=== PATIENT | female | born 1945 | race Caucasian/White ===

== ENCOUNTER → 2018-07-10 | Outpatient (CLI) | payer MEDICARE ==
[~2018-07-10] MED LIST: APIX5TAB PO; CETI-101 PO; FOLI-74 PO; FURO20TA4 PO; LOSA100T58 PO; METO75TA PO; TRIA10.8 NS; VITAMINB PO; [UNRECOGNIZED DRUG - OTHER] PO
== END | disposition home or self-care (01) ==
LOC: RAH 15:13
PROVIDERS: ATTEND Family Medicine
DX: R22.42 Localized swelling, mass and lump, left lower limb (principal)
CPT/HCPCS: 93971

== ENCOUNTER → 2018-07-20 | Outpatient (CLI) | payer MEDICARE | END | disposition home or self-care (01) | LOC: RAH 16:55 | PROVIDERS: ATTEND Internal Medicine Critical Care Medicine | DX: R22.41 Localized swelling, mass and lump, right lower limb (principal); Z91.81 History of falling | CPT/HCPCS: 73590 ==

== ENCOUNTER 2020-03-06 16:22 | Inpatient (IN) | payer MEDICARE ==
[~2020-03-06] VITALS: Ht 167.6 cm; Wt 56.7 kg
[~2020-03-06 16:22] MED LIST changes: -CETI-101 PO; +CETI-89 PO
[2020-03-06 16:49] LABS: BASOPHILS % (AUTO) 0.6 % (0.0-5.0); EOSINOPHILS % (AUTO) 4.9 % (0.0-8.0); HEMATOCRIT 37.3 % (36-48); LYMPHOCYTES % (AUTO) 18.3 % (21.0-51.0); MEAN CORPUSCULAR HEMOGLOBIN 31.9 pg (27.0-33.0); MEAN CORPUSCULAR VOLUME 93.7 fL (79-99); NEUTROPHILS % (AUTO) 62.8 % (40.0-77.0); PLATELET COUNT (AUTO) 297 K/uL (130-400); RED BLOOD CELL COUNT(AUTO) 3.98 MIL/uL (4.00-5.50); RED CELL DISTRIBUTION WIDTH 12.9 % (11.0-15.5); WHITE BLOOD COUNT (AUTO) 8.3 K/uL (4.8-10.8)
[2020-03-06 17:01] LABS: POTASSIUM 3.8 mmol/L (3.5-5.1)
[2020-03-06 17:02] LABS: INR 1.04 (0.85-1.15); PARTIAL THROMBOPLASTIN TIME 28.4 SEC (26.3-35.5); PROTHROMBIN TIME 11.2 SEC (9.6-11.6)
[2020-03-06 17:05] LABS: ALBUMIN 4.2 g/dL (3.5-5.0); BILIRUBIN,TOTAL 0.8 mg/dL (0.2-1.0)
[2020-03-06] MEDS ORDERED: ZOSYN 3.375GM+NS 50ML 50 ML IV ONE (17:11)
[2020-03-06] MEDS ORDERED: VANCOMYCIN 1GM+NS 250ML 250 ML IV ONE (17:22)
[2020-03-06] MEDS ORDERED: NITROGLYCERIN 0.4 MG SL TAB SL PRN (20:45)
[2020-03-06] MEDS ORDERED: ONDANSETRON HCL 4 MG/2 ML VIAL IV PRN (20:45)
[2020-03-06] MEDS ORDERED: VANCOMYCIN PROTOCOL PER PHARMACY IV PRN (20:45)
[2020-03-06] MEDS ORDERED: HYDROCODONE/ACETAMINOPHEN 5/325 MG TAB PO PRN ×2 (20:45)
[2020-03-06] MEDS ORDERED: DIPHENHYDRAMINE HCL 25 MG CAPSULE PO PRN (20:45)
[2020-03-06] MEDS ORDERED: ACETAMINOPHEN 325 MG TAB PO PRN ×2 (20:45)
[2020-03-06] MEDS ORDERED: SODIUM CHLORIDE 0.9% 1000ML 1,000 ML IV SCH (21:00)
[2020-03-06] MEDS ORDERED: FAMOTIDINE/PF 20 MG/2 ML VIAL IV ONE (21:21)
[2020-03-06] MEDS ORDERED: SODIUM CHLORIDE 0.9% 1000ML 2,000 ML IV ONE (21:25)
[2020-03-06] MEDS ORDERED: METOPROLOL TARTRATE 50 MG TAB ONE (22:22)
[2020-03-06] MEDS ORDERED: LOSARTAN 50 MG TABLET ONE (22:32)
[2020-03-07] MEDS ORDERED: ZOSYN 3.375GM+NS 50ML 50 ML IV SCH (02:00)
[2020-03-07] MEDS ORDERED: ZOSYN 3.375GM+NS 50ML 50 ML IV ONE ×2 (03:35→07:41)
[2020-03-07 04:32] LABS: APPEARANCE,URINE Clear (CLEAR); BILIRUBIN,URINE Negative (NEGATIVE); COLOR,URINE Yellow (YELLOW); GLUCOSE, URINE (UA) Negative (NEGATIVE); KETONES,URINE Trace mg/dL (NEGATIVE); LEUKOCYTE ESTERASE ,URINE Negative (NEGATIVE); NITRATE,URINE Negative (NEGATIVE); OCCULT BLOOD,URINE Moderate (NEGATIVE); PH,URINE 5.5 (5.0-8.0); PROTEIN,URINE Trace mg/dL (NEGATIVE); UROBILINOGEN,URINE 0.2 mg/dL (0.2-1.0)
[2020-03-07 04:38] LABS: MEAN CORPUSCULAR HEMOGLOBIN 32.6 pg (27.0-33.0); MEAN CORPUSCULAR HGB CONC 35.1 g/dL (32.0-36.0); MEAN CORPUSCULAR VOLUME 92.8 fL (79-99); PLATELET COUNT (AUTO) 273 K/uL (130-400); RED BLOOD CELL COUNT(AUTO) 3.77 MIL/uL (4.00-5.50); RED CELL DISTRIBUTION WIDTH 12.8 % (11.0-15.5); WHITE BLOOD COUNT (AUTO) 6.6 K/uL (4.8-10.8)
[2020-03-07 04:45] LABS: BACTERIA,URINE Few /HPF (None Seen); WBC,URINE 0-1 /HPF (0-1)
[2020-03-07 05:06] LABS: EOSINOPHILS % (MANUAL) 10 % (1-6); LYMPHOCYTES % (MANUAL) 18 % (22-44); MAN.DIFF COMMENT-IMPRESSION MANUAL DIFFERENTIAL; MONOCYTES % (MANUAL) 11 % (2-9); SEGMENTED NEUTROPHILS % 61 % (40-70)
[2020-03-07 05:09] LABS: ALBUMIN 3.8 g/dL (3.5-5.0); CREATININE 0.8 mg/dL (0.5-1.5); MAGNESIUM 2.1 mg/dL (1.80-2.40); POTASSIUM 3.3 mmol/L (3.5-5.1); THYROID STIMULATING HORMONE 4.56 uIU/mL (0.36-3.74); TOTAL PROTEIN, SERUM 7.3 g/dL (6.0-8.3)
[2020-03-07] MEDS ORDERED: APIXABAN 2.5 MG TABLET PO ONE (07:40)
[2020-03-07] MEDS ORDERED: FAMOTIDINE 20MG TAB 20 MG TAB ONE (07:41)
[2020-03-07] MEDS ORDERED: METOPROLOL TARTRATE 50 MG TAB ONE (07:41)
[2020-03-07] MEDS ORDERED: LIDOCAINE HCL-MPF 1% 2ML VIAL IV PRN (08:30)
[2020-03-07] MEDS ORDERED: POTASSIUM CHLORIDE 20MEQ/100ML 100 ML IV PRN (08:30)
[2020-03-07] MEDS: FAMOTIDINE 20MG TAB 20 MG TAB PO SCH (09:00)
[2020-03-07] MEDS: CEFAZOLIN SODIUM 1 GM VIAL IVP SCH ×2 (10:15→20:51)
[2020-03-07] MEDS ORDERED: CEFAZOLIN SODIUM 1 GM VIAL ONE (10:23)
[2020-03-07] MEDS ORDERED: SODIUM CHLORIDE 0.9% 100 ML IV ONE (10:24)
--- NOTE | 2020-03-07 14:54 | NUR ---
CM NOTE/IA UNABLE TO MEET PATIENT IN ROOM. IA DONE BY SPIKE GILES. PER PATIENT, LIVES WITH FRIEND, IS INDEPENDENT WITH ADLS, HAS USE OF CANE, NO PROVIDER OR HOME HEALTH SERVICES AND FEELS SAFE TO RETURN HOME ONCE DISCHARGED FROM HOSPITAL. Addendum: 03/07/20 at 1456 by GURMEET VALERO RN CM Amended: Links added.
[2020-03-07] MEDS ORDERED: DIPHENHYDRAMINE HCL 25 MG CAPSULE ONE (15:48)
[2020-03-07] MEDS: SODIUM CHLORIDE 0.9% 1000ML 1,000 ML IV SCH ×2 (16:45→20:52)
[2020-03-07] MEDS: LOSARTAN 100 MG TABLET PO SCH ×3 (17:00→22:09)
[2020-03-07 20:00] VITALS: BP 159/81
[2020-03-07] MEDS: METOPROLOL TARTRATE 50 MG TAB PO SCH ×2 (20:51→20:57)
[2020-03-07] MEDS: APIXABAN 5 MG TABLET PO SCH ×2 (20:52→20:57)
[2020-03-07] MEDS: VANCOMYCIN 1GM+NS 250ML 250 ML IV SCH (21:06)
[2020-03-07] MEDS: POTASSIUM CHLORIDE 20 MEQ ERTAB PO PRN (23:23)
[2020-03-08] VITALS (8 sets, daily range): BP systolic 134–171; BP diastolic 64–104
[2020-03-08] MEDS: POTASSIUM CHLORIDE 20 MEQ ERTAB PO PRN (00:31)
[2020-03-08] MEDS: SODIUM CHLORIDE 0.9% 1000ML 1,000 ML IV SCH ×3 (02:45→21:52)
[2020-03-08] MEDS: CEFAZOLIN SODIUM 1 GM VIAL IVP SCH ×3 (03:41→19:28)
[2020-03-08 05:16] LABS: BASOPHILS % (AUTO) 0.7 % (0.0-5.0); EOSINOPHILS % (AUTO) 8.4 % (0.0-8.0); HEMATOCRIT 32.5 % (36-48); LYMPHOCYTES % (AUTO) 18.5 % (21.0-51.0); MEAN CORPUSCULAR HEMOGLOBIN 31.4 pg (27.0-33.0); MEAN CORPUSCULAR HGB CONC 33.8 g/dL (32.0-36.0); MEAN CORPUSCULAR VOLUME 92.9 fL (79-99); MONOCYTES % (AUTO) 13.4 % (3.0-13.0); NEUTROPHILS % (AUTO) 58.8 % (40.0-77.0); PLATELET COUNT (AUTO) 259 K/uL (130-400); RED CELL DISTRIBUTION WIDTH 12.8 % (11.0-15.5); WHITE BLOOD COUNT (AUTO) 5.7 K/uL (4.8-10.8)
[2020-03-08 05:30] LABS: ALBUMIN 3.4 g/dL (3.5-5.0); BILIRUBIN,TOTAL 0.6 mg/dL (0.2-1.0); CREATININE 0.7 mg/dL (0.5-1.5); POTASSIUM 3.4 mmol/L (3.5-5.1); TOTAL PROTEIN, SERUM 6.6 g/dL (6.0-8.3)
[2020-03-08] MEDS: FAMOTIDINE 20MG TAB 20 MG TAB PO SCH (08:44)
[2020-03-08] MEDS: METOPROLOL TARTRATE 50 MG TAB PO SCH ×2 (08:45→19:29)
[2020-03-08] MEDS: APIXABAN 5 MG TABLET PO SCH ×2 (08:45→19:29)
[2020-03-08] MEDS ORDERED: PHARMACY COMMUNICATION MISC SCH (09:00)
--- NOTE | 2020-03-08 10:00 | NUR ---
CALL TO FRIEND ON FACE SHEET FORREST SANDOVAL, ASKED IF PATIENT HAS FAMILY FOR DECISION MAKING, REVEAL HAD LIVED WITH PATIENT > 3 YEARS, AND IS PARTNER, NOT FRIEND, STATES THAT PATIENT HAS A DAUGHTER OUT OF STATE THAT HE WOULD HAVE "GET HOLD OF' FOR ANY DIG DECISION BUT HER DOES NOT HAVE THAT NUMBER HANDY. DANIEL ASKED IF WE COULD CHANGE STATUS ON FACE SHEET TO PARTNER, RATHER THAN FRIEND, FOR CLARIFICATION OF RELATIONSHIP, MR SANDOVAL AGREED BEST DESCRIPTION Addendum: 03/08/20 at 1741 by KEVIN STEVENSON RN CM Amended: Links added.
[2020-03-08] MEDS: MINERAL OIL/PETROLATUM,WHITE 454 GM CREAM.GM. TP SCH ×2 (13:30→19:30)
[2020-03-08] MEDS: LOSARTAN 100 MG TABLET PO SCH (17:12)
[2020-03-08] MEDS: VANCOMYCIN 1GM+NS 250ML 250 ML IV SCH (17:12)
[2020-03-09] VITALS (7 sets, daily range): BP systolic 145–170; BP diastolic 85–99
[2020-03-09] MEDS: CEFAZOLIN SODIUM 1 GM VIAL IVP SCH ×3 (03:16→19:25)
[2020-03-09 05:32] LABS: HEMATOCRIT 30.3 % (36-48); MEAN CORPUSCULAR HEMOGLOBIN 32.3 pg (27.0-33.0); MEAN CORPUSCULAR HGB CONC 35.3 g/dL (32.0-36.0); MEAN CORPUSCULAR VOLUME 91.5 fL (79-99); RED BLOOD CELL COUNT(AUTO) 3.31 MIL/uL (4.00-5.50); RED CELL DISTRIBUTION WIDTH 12.9 % (11.0-15.5); WHITE BLOOD COUNT (AUTO) 5.3 K/uL (4.8-10.8)
[2020-03-09 05:57] LABS: ALANINE AMINOTRANSFERASE 17 U/L (12-78); ALBUMIN 3.1 g/dL (3.5-5.0); ASPARTATE AMINOTRANSFERASE 25 U/L (10-37); BILIRUBIN,TOTAL 0.6 mg/dL (0.2-1.0); CARBON DIOXIDE 21 mmol/L (21-32); CHLORIDE 104 mmol/L (101-111); CREATININE 0.6 mg/dL (0.5-1.5); GLOMERULAR FILTR. RATE CALC 104 mL/min (>60); GLUCOSE,RANDOM 87 mg/dL (70-105); SODIUM SERUM 135 mmol/L (136-145); TOTAL PROTEIN, SERUM 6.2 g/dL (6.0-8.3); UREA NITROGEN, BLOOD 2 mg/dL (7-18)
[2020-03-09 06:05] LABS: POTASSIUM 2.9 mmol/L (3.5-5.1)
[2020-03-09] MEDS: POTASSIUM CHLORIDE 20 MEQ ERTAB PO PRN (06:10)
[2020-03-09] MEDS: APIXABAN 5 MG TABLET PO SCH ×2 (08:35→19:25)
[2020-03-09] MEDS: METOPROLOL TARTRATE 50 MG TAB PO SCH ×2 (08:35→19:26)
[2020-03-09] MEDS: FAMOTIDINE 20MG TAB 20 MG TAB PO SCH (08:35)
[2020-03-09] MEDS: SODIUM CHLORIDE 0.9% 1000ML 1,000 ML IV SCH (08:36)
[2020-03-09] MEDS: MINERAL OIL/PETROLATUM,WHITE 454 GM CREAM.GM. TP SCH ×3 (08:36→19:26)
--- NOTE | 2020-03-09 10:30 | NUR ---
MADIHA NOTE----Request by DANIEL López to offer MPOA to pt. SW visited pt's room, pt awake, alert and cooperative; informed of reason for SW's visit. Pt. stated that she already has a MPOA at home and did not wish to complete another. Pt. advised to provide copies to medical team, primary physician, etc in the event needed; pt. voiced an understanding. Pt. verbalized no needs or concerns.
[2020-03-09] MEDS ORDERED: MAGNESIUM 2GM PREMIX 50ML 50 ML IV PRN (11:15)
[2020-03-09] MEDS: VANCOMYCIN 1GM+NS 250ML 250 ML IV SCH (16:48)
[2020-03-09] MEDS: LOSARTAN 100 MG TABLET PO SCH (16:48)
[2020-03-10] MEDS: CEFAZOLIN SODIUM 1 GM VIAL IVP SCH ×2 (03:22→12:09)
[2020-03-10] MEDS: SODIUM CHLORIDE 0.9% 1000ML 1,000 ML IV SCH (03:22)
[2020-03-10 03:42] VITALS: BP 151/90
[2020-03-10 08:00] VITALS: BP 151/98
[2020-03-10] MEDS ORDERED: POTA-79 PO (08:00)
[2020-03-10] MEDS ORDERED: AMMO120C2 TP (08:00)
[2020-03-10] MEDS: APIXABAN 5 MG TABLET PO SCH (08:25)
[2020-03-10] MEDS: MINERAL OIL/PETROLATUM,WHITE 454 GM CREAM.GM. TP SCH (08:25)
[2020-03-10] MEDS: METOPROLOL TARTRATE 50 MG TAB PO SCH (08:25)
[2020-03-10] MEDS: FAMOTIDINE 20MG TAB 20 MG TAB PO SCH (08:25)
[2020-03-10 09:01] LABS: CRP QUANTITATIVE 13.7 mg/L (0.00-9.0); MAGNESIUM 1.9 mg/dL (1.80-2.40); POTASSIUM 3.3 mmol/L (3.5-5.1)
[2020-03-10 11:39] VITALS: BP 141/87
[2020-03-10] MEDS: POTASSIUM CHLORIDE 10% ELIXIR 20 MEQ/15 ML UDCUP PO PRN ×3 (12:09→16:08)
--- NOTE | 2020-03-10 16:41 | NUR ---
Discharge instructions provided with pt and in the room. Emphasis on dx cellulitis, s/s to monitor for, when to seek emergency care vs dial 911. Pt has a follow up appt with Dr. Veloz on 04/04, which is earliest office had available. Per Dr. Veloz ok to wait until then. Pt understands she must also call to schedule follow up with PCP at [facility] to be seen within 3-5 days. All rx's called in to pt's pharmacy of choice: [facility] [place] with pharmacist Maribell. Discussed purpose, route, frequency, and duration of all (Emu-lac topically, po potassium, po cephalexin, and po doxycycline), as well as side effects and adverse effects. Pt encouraged to take exactly as prescribed, and complete entire regimen of antibiotics. PIV removed, tip intact, pressure held for 2 minutes as pt takes eliquis. Then, after hemostasis achieved, dressed with sterile 2x2 and band aid. Pt wheeled to front lobby by [facility] [place] [place] staff for transport home via private vehicle. Pt in stable condition at time of discharge.
== END 2020-03-10 16:30 | disposition home or self-care (01) | DRG 603 ==
LOC: EDH 16:22 → EDHIP 19:44 → 4AH 03-07 19:00
PROVIDERS: ADMIT Internal Medicine; ATTEND Internal Medicine
DX: L03.115 Cellulitis of right lower limb (principal); N17.9 Acute kidney failure, unspecified; I48.20 Chronic atrial fibrillation, unspecified; E87.6 Hypokalemia; I10 Essential (primary) hypertension; E03.9 Hypothyroidism, unspecified; E78.5 Hyperlipidemia, unspecified; M19.90 Unspecified osteoarthritis, unspecified site; E87.8 Other disorders of electrolyte and fluid balance, not elsewhere classified; Z79.01 Long term (current) use of anticoagulants; Z82.0 Family history of epilepsy and other diseases of the nervous system; Z82.3 Family history of stroke; Z82.49 Family history of ischemic heart disease and other diseases of the circulatory system; Z82.5 Family history of asthma and other chronic lower respiratory diseases; Z83.3 Family history of diabetes mellitus; Z88.2 Allergy status to sulfonamides
CPT/HCPCS: 36415; 80053; 81001; 82948; 83605; 83735; 83880; 84132; 84145; 84443; 85025; 85027; 85610; 85651; 85730; 86140; 87040; 87641; 93005; 93971; G0378; J0690; J2543; J3370; J3480; J3490; J7030; Q0163